=== PATIENT | female | born 1945 | race Caucasian/White ===

== ENCOUNTER 2019-11-13 23:50 | Inpatient (IN) ==
[2019-11-14 01:45] LABS: Basophils # 0.1 K/mcL (0.0-0.2); Basophils % 0.8 %; Eosinophils # 0.5 K/mcL (0.0-0.6); Eosinophils % 4.9 %; Hematocrit 31.5 % (35.3-44.9); Hemoglobin 9.6 g/dL (11.5-15.4); Immature Granulocytes % 0.4 % (0-4); Lymphocytes # 2.4 K/mcL (0.6-4.6); Lymphocytes % 23.4 %; Mean Corpuscular HGB Conc 30.5 g/dL (31.6-35.5); Mean Corpuscular Hemoglobin 25.6 pg (28.0-33.3); Mean Platelet Volume 9.9 fL (9.4-12.4); Monocytes # 0.8 K/mcL (0.0-1.3); Monocytes % 7.9 %; Neutrophils # 6.5 K/mcL (1.6-8.9); Platelet Count 290 K/mcL (140-400); Red Blood Count 3.75 M/mcL (3.82-4.97); Red Cell Distribution Width 15.9 % (11.5-14.5); Segmented Neutrophils % 62.6 %; White Blood Count 10.3 K/mcL (4.3-11.1)
[2019-11-14 02:06] LABS: BUN/Creatinine Ratio 18 (6-26); Blood Urea Nitrogen 27 mg/dL (8-23); Calcium 8.3 mg/dL (8.6-10.3); Carbon Dioxide 23 mEq/L (23-29); Chloride 109 mEq/L (98-107); Glucose 112 mg/dL (70-105); Osmolality,Calculated 292 (280-300); Potassium 4.2 mEq/L (3.5-5.1); Sodium 138 mEq/L (136-145); eGFR For African Americans 41 (> 60); eGFR For Non-African Americans 34 (> 60)
[2019-11-14 02:07] LABS: Troponin I < 0.03 ng/mL (< 0.04)
[2019-11-14] MEDS ORDERED: Furosemide 20 MG/2 ML VIAL IVP ONE (02:47)
[2019-11-14] MEDS ORDERED: Mag Hydrox/Al Hydrox/Simeth 30 ML UDC PO PRN (05:07)
[2019-11-14] MEDS ORDERED: Naloxone 0.4 MG/ML INJ IVP PRN (05:07)
[2019-11-14] MEDS ORDERED: Acetaminophen 325 MG TABLET PO PRN ×2 (05:07→05:44)
[2019-11-14] MEDS ORDERED: *HR* Promethazine 25 MG/ML VIAL IVP PRN (05:07)
[2019-11-14] MEDS ORDERED: *HR* Enoxaparin 100 MG/ML SYRINGE SQ ONE (05:23)
[2019-11-14] MEDS ORDERED: diazePAM 5 MG TABLET PO PRN (05:44)
[2019-11-14] MEDS ORDERED: *HR* Heparin 5,000 UNIT/ML VIAL SQ SCH (06:00)
[2019-11-14] MEDS: Furosemide 40 MG/4 ML VIAL IVP SCH (09:06)
[2019-11-14] MEDS: FLUoxetine 20 MG CAPSULE PO SCH (09:06)
[2019-11-14] MEDS: Aspirin Enteric Coated 81 MG Tablet PO SCH (09:06)
[2019-11-14] MEDS: Metoprolol XL (24 HR) Succ 25 MG TAB.ER.24H PO SCH ×2 (14:15→14:45)
[2019-11-14] MEDS: amLODIPine 5 MG TABLET PO SCH (16:26)
[2019-11-14] MEDS ORDERED: Melatonin 3 MG TABLET PO STA (20:48)
[2019-11-14] MEDS: Metoprolol XL (24 HR) Succ 50 MG TAB.ER.24H PO SCH (20:52)
[2019-11-15 04:38] LABS: Basophils # 0.1 K/mcL (0.0-0.2); Basophils % 0.7 %; Eosinophils # 0.4 K/mcL (0.0-0.6); Eosinophils % 4.3 %; Hematocrit 32.2 % (35.3-44.9); Hemoglobin 9.8 g/dL (11.5-15.4); Immature Granulocytes % 0.5 % (0-4); Lymphocytes # 2.4 K/mcL (0.6-4.6); Lymphocytes % 27.3 %; Mean Corpuscular HGB Conc 30.4 g/dL (31.6-35.5); Mean Corpuscular Hemoglobin 25.7 pg (28.0-33.3); Mean Corpuscular Volume 84.3 fL (83.0-100.0); Monocytes # 0.8 K/mcL (0.0-1.3); Monocytes % 9.6 %; Platelet Count 279 K/mcL (140-400); Red Blood Count 3.82 M/mcL (3.82-4.97); Segmented Neutrophils % 57.6 %; White Blood Count 8.6 K/mcL (4.3-11.1)
[2019-11-15 04:56] LABS: Calcium 8.8 mg/dL (8.6-10.3); Potassium 4.2 mEq/L (3.5-5.1)
[2019-11-15] MEDS: Aspirin Enteric Coated 81 MG Tablet PO SCH (07:50)
[2019-11-15] MEDS: Metoprolol XL (24 HR) Succ 50 MG TAB.ER.24H PO SCH ×2 (07:50→21:08)
[2019-11-15] MEDS: FLUoxetine 20 MG CAPSULE PO SCH (07:50)
[2019-11-15] MEDS: Furosemide 40 MG/4 ML VIAL IVP SCH (07:50)
[2019-11-15] MEDS: amLODIPine 5 MG TABLET PO SCH (16:30)
[2019-11-15] MEDS: *HR* Heparin 5,000 UNIT/ML VIAL SQ SCH (16:30)
[2019-11-16] MEDS: *HR* Heparin 5,000 UNIT/ML VIAL SQ SCH ×2 (05:33→18:01)
[2019-11-16 06:36] LABS: Calcium 8.7 mg/dL (8.6-10.3); Potassium 3.9 mEq/L (3.5-5.1)
[2019-11-16] MEDS: Furosemide 40 MG/4 ML VIAL IVP SCH (08:06)
[2019-11-16] MEDS: Aspirin Enteric Coated 81 MG Tablet PO SCH (08:06)
[2019-11-16] MEDS: Metoprolol XL (24 HR) Succ 50 MG TAB.ER.24H PO SCH ×2 (08:06→20:16)
[2019-11-16] MEDS: FLUoxetine 20 MG CAPSULE PO SCH (08:06)
[2019-11-16] MEDS ORDERED: Metoprolol XL (24 HR) Succ 25 MG TAB.ER.24H PO STA (11:27)
[2019-11-16] MEDS: amLODIPine 5 MG TABLET PO SCH (15:53)
[2019-11-16] MEDS ORDERED: Melatonin 3 MG TABLET PO SCH (21:00)
[2019-11-17] MEDS: *HR* Heparin 5,000 UNIT/ML VIAL SQ SCH ×2 (05:45→17:14)
[2019-11-17] MEDS ORDERED: Furosemide 40 MG TABLET PO SCH (09:00)
[2019-11-17] MEDS: Metoprolol XL (24 HR) Succ 50 MG TAB.ER.24H PO SCH (09:22)
[2019-11-17] MEDS: FLUoxetine 20 MG CAPSULE PO SCH (09:22)
[2019-11-17] MEDS: Aspirin Enteric Coated 81 MG Tablet PO SCH (09:22)
[2019-11-17 16:48] VITALS: BP 166/55
[2019-11-17] MEDS: amLODIPine 5 MG TABLET PO SCH (17:13)
== END 2019-11-17 18:10 | disposition home or self-care (01) | DRG 291 ==
LOC: EMEROOARM 23:50 → 2NENU 23:50 → SUATTDRO 11-14 06:37 → 2NENU 11-17 05:33
PROVIDERS: ADMIT Internal Medicine; ATTEND Internal Medicine

== ENCOUNTER 2020-12-01 14:46 | Inpatient (IN) ==
[2020-12-01] MEDS ORDERED: Ondansetron 4 MG/2 ML VIAL IVP PRN (18:31)
[2020-12-01] MEDS ORDERED: Naloxone 0.4 MG/ML INJ IVP PRN (18:31)
[2020-12-01 19:29] LABS: Basophils % 0.2 %; Eosinophils % 0.2 %; Hematocrit 32.5 % (35.3-44.9); Hemoglobin 10.2 g/dL (11.5-15.4); Immature Granulocytes % 0.5 % (0-4); Lymphocytes # 3.1 K/mcL (0.6-4.6); Lymphocytes % 18.7 %; Mean Corpuscular HGB Conc 31.4 g/dL (31.6-35.5); Mean Corpuscular Hemoglobin 27.5 pg (28.0-33.3); Mean Corpuscular Volume 87.6 fL (83.0-100.0); Mean Platelet Volume 10.6 fL (9.4-12.4); Monocytes # 1.2 K/mcL (0.0-1.3); Monocytes % 7.6 %; Neutrophils # 11.9 K/mcL (1.6-8.9); Platelet Count 259 K/mcL (140-400); Red Blood Count 3.71 M/mcL (3.82-4.97); Red Cell Distribution Width 14.9 % (11.5-14.5); Segmented Neutrophils % 72.8 %; White Blood Count 16.4 K/mcL (4.3-11.1)
[2020-12-01 19:45] LABS: INR 1.4; Prothrombin Time 16.3 Seconds (9.4-12.1)
[2020-12-01 20:15] LABS: Calcium 8.3 mg/dL (8.6-10.3); Magnesium 1.5 mg/dL (1.6-2.6)
[2020-12-01] MEDS ORDERED: Perflutren Lipid Microsphere 1.3 ML in 0.9 % Sodium Chloride 8.7 ML IVP PRN (22:56)
[2020-12-01] MEDS: Acetaminophen 325 MG TABLET PO PRN (23:40)
[2020-12-01] MEDS ORDERED: Calcium Gluconate 1gm/50mL 1 GM/50 ML BAG IVPB ONE (23:42)
[2020-12-01] MEDS: Clindamycin 900 MG/50 ML 900 MG/50 ML IV.SOLN IVPB SCH (23:46)
[2020-12-01] MEDS: *HR* Heparin 5,000 UNIT/ML VIAL SQ SCH (23:48)
[2020-12-02 01:05] LABS: Hematocrit 30.5 % (35.3-44.9); Hemoglobin 9.5 g/dL (11.5-15.4); Mean Corpuscular HGB Conc 31.1 g/dL (31.6-35.5); Mean Corpuscular Hemoglobin 27.3 pg (28.0-33.3); Mean Corpuscular Volume 87.6 fL (83.0-100.0); Mean Platelet Volume 10.5 fL (9.4-12.4); Platelet Count 243 K/mcL (140-400); Red Blood Count 3.48 M/mcL (3.82-4.97); Red Cell Distribution Width 14.8 % (11.5-14.5); White Blood Count 13.9 K/mcL (4.3-11.1)
[2020-12-02 01:24] LABS: Chol/HDL Ratio 3.3 (0-4.9)
[2020-12-02 01:26] LABS: Calcium 8.3 mg/dL (8.6-10.3); Potassium 3.9 mEq/L (3.5-5.1)
[2020-12-02 01:27] LABS: % Iron Saturation 9 % (15-50); Iron 21 mcg/dL (50-170); Transferrin 174 mg/dL (203-362)
[2020-12-02 01:47] LABS: Ferritin 180 ng/mL (10-120)
[2020-12-02 01:53] LABS: Folate 11.1 ng/mL (3.0-16.0)
[2020-12-02 02:18] LABS: Estimated Average Glucose 108 mg/dl; Hemoglobin A1C 5.4 %
[2020-12-02] MEDS: *HR* Heparin 5,000 UNIT/ML VIAL SQ SCH (05:25)
[2020-12-02] MEDS ORDERED: Famotidine 20 MG/2 ML VIAL IVP SCH (06:00)
[2020-12-02] MEDS ORDERED: *HR* Heparin 5,000 UNIT/ML VIAL IVP ONE (07:31)
[2020-12-02] MEDS ORDERED: *HR* Heparin 5,000 UNIT/ML VIAL IVP PRN ×2 (07:31)
[2020-12-02] MEDS ORDERED: Perflutren Lipid Microsphere 1.3 ML in 0.9 % Sodium Chloride 8.7 ML IVP PRN (07:34)
[2020-12-02 08:41] LABS: Hemoglobin 9.9 g/dL (11.5-15.4); Mean Corpuscular Hemoglobin 28.9 pg (28.0-33.3); Mean Corpuscular Volume 87.5 fL (83.0-100.0); Mean Platelet Volume 10.7 fL (9.4-12.4); Platelet Count 232 K/mcL (140-400); Red Blood Count 3.43 M/mcL (3.82-4.97); Red Cell Distribution Width 14.6 % (11.5-14.5); White Blood Count 13.1 K/mcL (4.3-11.1)
[2020-12-02 08:48] LABS: Heparin anti-factor XA UFH 0.04 IU/mL (0.30-0.70); INR 1.5; Prothrombin Time 16.8 Seconds (9.4-12.1)
[2020-12-02] MEDS: Clindamycin 900 MG/50 ML 900 MG/50 ML IV.SOLN IVPB SCH (09:08)
[2020-12-02] MEDS: Heparin 25,000UNIT/250ML 1/2NS 25,000 UNIT/250 ML IV.SOLN IVC SCH (09:08)
[2020-12-02] MEDS ORDERED: tiZANidine 4 MG TABLET PO PRN (15:00)
[2020-12-02] MEDS ORDERED: Gabapentin 300 MG CAPSULE PO SCH (15:00)
[2020-12-02] MEDS: Clindamycin 600 MG/50 ML 600 MG/50 ML IV.SOLN IVPB SCH ×2 (16:43→23:59)
[2020-12-02] MEDS: carvediloL 6.25 MG TABLET PO SCH (16:45)
[2020-12-02] MEDS ORDERED: carvediloL 6.25 MG TABLET PO SCH (17:00)
[2020-12-02] MEDS: Gabapentin 300 MG CAPSULE PO SCH (21:12)
[2020-12-02] MEDS: 0.9 % Sodium Chloride 1,000 ML IVC SCH (21:34)
[2020-12-03] MEDS: Albumin 25% 25gram/100mL 25 GM/100 ML IV.SOLN IVPB SCH ×3 (00:22→16:04)
[2020-12-03] MEDS: Heparin 25,000UNIT/250ML 1/2NS 25,000 UNIT/250 ML IV.SOLN IVC SCH (04:10)
[2020-12-03] MEDS: carvediloL 6.25 MG TABLET PO SCH ×2 (08:44→16:03)
[2020-12-03] MEDS: Lactobacillus 1 EACH CAP.SPRINK PO SCH (08:44)
[2020-12-03] MEDS: FLUoxetine 20 MG CAPSULE PO SCH (08:44)
[2020-12-03] MEDS: Cholecalciferol (D-3) 1,000 UNIT (25MCG) TABLET PO SCH (08:44)
[2020-12-03] MEDS: Clindamycin 600 MG/50 ML 600 MG/50 ML IV.SOLN IVPB SCH ×2 (08:45→16:04)
[2020-12-03] MEDS ORDERED: levoFLOXacin 750 MG/150 ML 750 MG/150 ML BAG IVPB SCH (09:00)
[2020-12-03] MEDS ORDERED: Spironolactone 25 MG TABLET PO SCH (09:00)
[2020-12-03] MEDS ORDERED: Famotidine 20 MG/2 ML VIAL IVP SCH (09:00)
[2020-12-03 10:43] LABS: Hematocrit 28.8 % (35.3-44.9); Hemoglobin 8.9 g/dL (11.5-15.4); Mean Corpuscular HGB Conc 30.9 g/dL (31.6-35.5); Mean Corpuscular Hemoglobin 27.5 pg (28.0-33.3); Mean Corpuscular Volume 88.9 fL (83.0-100.0); Mean Platelet Volume 10.8 fL (9.4-12.4); Platelet Count 221 K/mcL (140-400); Red Blood Count 3.24 M/mcL (3.82-4.97); Red Cell Distribution Width 14.6 % (11.5-14.5)
[2020-12-03 10:44] LABS: Immature Reticulocyte % 25.5 % (11.0-38.0); Retculocyte # 0.05 M/mcL (0.05-0.10); Reticulocyte % 1.7 % (1.6-2.8)
[2020-12-03 11:01] LABS: Albumin 3.9 g/dL (3.5-5.7); Albumin/Globulin Ratio 1.3 (1.1-2.2); Bilirubin,Total 0.8 mg/dL (0.3-1.0); Calcium 8.7 mg/dL (8.6-10.3); Globulin 2.9 g/dL (2.4-3.5); Potassium 3.6 mEq/L (3.5-5.1); Total Protein 6.8 g/dL (6.4-8.9); Uric Acid 8.8 mg/dL (2.3-7.6)
[2020-12-03 11:02] LABS: Chol/HDL Ratio 4.2 (0-4.9)
[2020-12-03 11:14] LABS: Bacteria,Urine Few per hpf (None-Few); Bilirubin,Urine Negative (Negative); Blood,Urine Small (Negative); Clarity,Urine Clear (Clear); Color,Urine Light-Yellow (Yellow); Glucose,Urine (UA) Normal (Normal); Hyaline Casts,Urine Few per lpf (None Seen); Ketones,Urine Negative (Negative); Leukocyte Esterase,Urine Small (Negative); Nitrite,Urine Negative (Negative); Protein,Urine 30 mg/dL (Neg-Trace); RBC,Urine 0-3 per hpf (0-3); Specific Gravity,Urine 1.014 (1.010-1.025); Squamous Epithelial Cell,Urine Few per hpf (None-Few); Urobilinogen,Urine Normal (Normal)
[2020-12-03 11:22] LABS: Hepatitis B Surface Antigen Nonreactive (Nonreactive)
[2020-12-03 11:52] LABS: Hepatitis C Virus Antibody Nonreactive (Nonreactive)
[2020-12-03 11:53] LABS: Hepatitis B Core IgM Nonreactive (Nonreactive)
[2020-12-03 11:54] LABS: Hepatitis A Antibody IgM Nonreactive (Nonreactive)
[2020-12-03] MEDS ORDERED: Ferumoxytol 510 MG in 0.9 % Sodium Chloride 100 ML IVPB ONE (12:28)
[2020-12-03] MEDS ORDERED: Isovue-370 500 ML BOTTLE IVP ONE (17:23)
[2020-12-03] MEDS ORDERED: 0.9 % Sodium Chloride 1,000 ML IVC SCH ×2 (17:30→17:34)
[2020-12-03] MEDS: 0.9 % Sodium Chloride 500 ML IVC SCH (17:47)
[2020-12-03] MEDS: Gabapentin 300 MG CAPSULE PO SCH (20:40)
[2020-12-03] MEDS: Acetaminophen 325 MG TABLET PO PRN (20:40)
[2020-12-04] MEDS: 0.9 % Sodium Chloride 1,000 ML IVC SCH (00:22)
[2020-12-04] MEDS: Clindamycin 600 MG/50 ML 600 MG/50 ML IV.SOLN IVPB SCH ×2 (00:23→07:56)
[2020-12-04] MEDS: Albumin 25% 25gram/100mL 25 GM/100 ML IV.SOLN IVPB SCH ×3 (00:25→16:49)
[2020-12-04] MEDS: Heparin 25,000UNIT/250ML 1/2NS 25,000 UNIT/250 ML IV.SOLN IVC SCH (00:49)
[2020-12-04 03:28] LABS: Basophils % 0.4 %; Eosinophils # 0.3 K/mcL (0.0-0.6); Eosinophils % 4.4 %; Hemoglobin 7.7 g/dL (11.5-15.4); Immature Granulocytes % 0.5 % (0-4); Lymphocytes % 27.1 %; Mean Corpuscular HGB Conc 30.8 g/dL (31.6-35.5); Mean Corpuscular Hemoglobin 27.8 pg (28.0-33.3); Mean Corpuscular Volume 90.3 fL (83.0-100.0); Mean Platelet Volume 10.9 fL (9.4-12.4); Monocytes # 0.6 K/mcL (0.0-1.3); Monocytes % 7.9 %; Neutrophils # 4.4 K/mcL (1.6-8.9); Platelet Count 202 K/mcL (140-400); Red Blood Count 2.77 M/mcL (3.82-4.97); Red Cell Distribution Width 14.8 % (11.5-14.5); Segmented Neutrophils % 59.7 %; White Blood Count 7.3 K/mcL (4.3-11.1)
[2020-12-04 03:45] LABS: Calcium 8.5 mg/dL (8.6-10.3); Potassium 3.7 mEq/L (3.5-5.1)
[2020-12-04] MEDS: carvediloL 6.25 MG TABLET PO SCH ×2 (07:56→16:49)
[2020-12-04] MEDS: FLUoxetine 20 MG CAPSULE PO SCH (08:08)
[2020-12-04] MEDS: Cyanocobalamin (B-12) 1,000 MCG TABLET PO SCH (08:08)
[2020-12-04] MEDS: Lactobacillus 1 EACH CAP.SPRINK PO SCH (08:08)
[2020-12-04] MEDS: Cholecalciferol (D-3) 1,000 UNIT (25MCG) TABLET PO SCH (08:08)
[2020-12-04 14:25] LABS: Hematocrit 28.2 % (35.3-44.9); Hemoglobin 9.1 g/dL (11.5-15.4)
[2020-12-04] MEDS ORDERED: *HR* Heparin 5,000 UNIT/ML VIAL SQ SCH (18:00)
[2020-12-04] MEDS: 0.9 % Sodium Chloride 500 ML IVC SCH (19:47)
[2020-12-04] MEDS: Gabapentin 300 MG CAPSULE PO SCH (20:36)
[2020-12-04] MEDS: Acetaminophen 325 MG TABLET PO PRN (20:36)
[2020-12-04 22:29] LABS: ABG Base Excess -2 mEq/L (-2 to 3); ABG HCO3 23 mEq/L (21-27); ABG Oxygen Saturation 90 % (95-98); ABG PCO2 39 mmHg (35-45); ABG PH 7.38 pH Units (7.32-7.45); ABG PO2 59 mmHg (85-104); ABG TCO2 24 mEq/L (20-26)
[2020-12-05] MEDS ORDERED: Furosemide 20 MG/2 ML VIAL IVP ONE (00:57)
[2020-12-05] MEDS: Albumin 25% 25gram/100mL 25 GM/100 ML IV.SOLN IVPB SCH (01:10)
[2020-12-05 06:00] LABS: Basophils # 0.1 K/mcL (0.0-0.2); Basophils % 0.5 %; Eosinophils # 0.3 K/mcL (0.0-0.6); Eosinophils % 2.7 %; Hematocrit 28.3 % (35.3-44.9); Hemoglobin 8.6 g/dL (11.5-15.4); Immature Granulocytes % 1.4 % (0-4); Lymphocytes # 1.7 K/mcL (0.6-4.6); Lymphocytes % 15.4 %; Mean Corpuscular HGB Conc 30.4 g/dL (31.6-35.5); Mean Corpuscular Hemoglobin 27.7 pg (28.0-33.3); Mean Platelet Volume 10.5 fL (9.4-12.4); Monocytes # 1.1 K/mcL (0.0-1.3); Monocytes % 10.3 %; Neutrophils # 7.7 K/mcL (1.6-8.9); Platelet Count 250 K/mcL (140-400); Red Blood Count 3.11 M/mcL (3.82-4.97); Red Cell Distribution Width 15.2 % (11.5-14.5); Segmented Neutrophils % 69.7 %
[2020-12-05 06:01] LABS: White Blood Count 11.1 K/mcL (4.3-11.1)
[2020-12-05 06:21] LABS: Calcium 9.5 mg/dL (8.6-10.3)
[2020-12-05] MEDS: Cholecalciferol (D-3) 1,000 UNIT (25MCG) TABLET PO SCH (08:29)
[2020-12-05] MEDS: FLUoxetine 20 MG CAPSULE PO SCH (08:29)
[2020-12-05] MEDS: carvediloL 6.25 MG TABLET PO SCH ×2 (08:29→16:13)
[2020-12-05] MEDS: Lactobacillus 1 EACH CAP.SPRINK PO SCH (08:29)
[2020-12-05] MEDS: amLODIPine 5 MG TABLET PO SCH (08:30)
[2020-12-05] MEDS: Cyanocobalamin (B-12) 1,000 MCG TABLET PO SCH (08:31)
[2020-12-05] MEDS: Furosemide 40 MG TABLET PO SCH (10:18)
[2020-12-05] MEDS ORDERED: carvediloL 6.25 MG TABLET PO STA (12:49)
[2020-12-05] MEDS: Acetaminophen 325 MG TABLET PO PRN ×2 (13:19→20:54)
[2020-12-05] MEDS ORDERED: Ipratropium/Albuterol Neb 3 ML IH ONE (20:04)
[2020-12-05] MEDS ORDERED: Ipratropium/Albuterol Neb 3 ML IH PRN (20:09)
[2020-12-05] MEDS: Gabapentin 300 MG CAPSULE PO SCH (20:54)
[2020-12-06 00:29] LABS: Lambda Qnt Free Light Chains 23.92 mg/L (5.71-26.30)
[2020-12-06 05:23] LABS: Basophils # 0.1 K/mcL (0.0-0.2); Basophils % 0.4 %; Eosinophils # 0.4 K/mcL (0.0-0.6); Hematocrit 27.4 % (35.3-44.9); Hemoglobin 8.9 g/dL (11.5-15.4); Immature Granulocytes % 1.3 % (0-4); Lymphocytes # 1.9 K/mcL (0.6-4.6); Lymphocytes % 15.7 %; Mean Corpuscular HGB Conc 32.5 g/dL (31.6-35.5); Mean Corpuscular Hemoglobin 28.4 pg (28.0-33.3); Mean Corpuscular Volume 87.5 fL (83.0-100.0); Mean Platelet Volume 10.6 fL (9.4-12.4); Monocytes # 1.1 K/mcL (0.0-1.3); Neutrophils # 8.4 K/mcL (1.6-8.9); Nucleated Red Blood Cells 0.2 /100 WBC (0); Platelet Count 263 K/mcL (140-400); Red Blood Count 3.13 M/mcL (3.82-4.97); Red Cell Distribution Width 15.1 % (11.5-14.5); Segmented Neutrophils % 70.6 %; White Blood Count 11.9 K/mcL (4.3-11.1)
[2020-12-06 05:31] LABS: Calcium 9.5 mg/dL (8.6-10.3); Potassium 3.3 mEq/L (3.5-5.1)
[2020-12-06] MEDS ORDERED: *HR* Metoprolol 5 MG/5 ML VIAL IVP ONE (05:43)
[2020-12-06] MEDS: Cholecalciferol (D-3) 1,000 UNIT (25MCG) TABLET PO SCH (08:28)
[2020-12-06] MEDS: Lactobacillus 1 EACH CAP.SPRINK PO SCH (08:28)
[2020-12-06] MEDS: amLODIPine 5 MG TABLET PO SCH (08:33)
[2020-12-06] MEDS: carvediloL 6.25 MG TABLET PO SCH (08:33)
[2020-12-06] MEDS: FLUoxetine 20 MG CAPSULE PO SCH (08:33)
[2020-12-06] MEDS: Furosemide 40 MG TABLET PO SCH (08:34)
[2020-12-06 10:06] VITALS: BP 158/64; PULSE 78; TEMP 99.1
[2020-12-06 10:38] LABS: Kappa Qnt Free Light Chains 45.19 mg/L (3.30-19.40)
[2020-12-06] MEDS ORDERED: levoFLOXacin 750 MG/150 ML 750 MG/150 ML BAG IVPB SCH (11:00)
[2020-12-06] MEDS ORDERED: Spironolactone 25 MG TABLET PO SCH (11:00)
[2020-12-06] MEDS: Ipratropium/Albuterol Neb 3 ML IH SCH ×2 (11:15→15:40)
[2020-12-06 11:17] VITALS: O2SAT 98
[2020-12-06] MEDS: Cyanocobalamin (B-12) 1,000 MCG TABLET PO SCH (11:18)
[2020-12-07 16:52] LABS: Alpha 2 Globulin (PEP) 0.98 g/dL (0.48-1.05); Beta Globulin (PEP) 0.77 g/dL (0.48-1.10)
[2020-12-07 17:32] LABS: IFE Reflexed NOT DONE
== END 2020-12-06 17:37 | disposition home health service (06) | DRG 602 ==
LOC: 3ANU → SUATTDRO 18:00
PROVIDERS: ADMIT Pharmacist; ATTEND General Practice